=== PATIENT | female | born 1980 | race Caucasian/White ===

== ENCOUNTER 2016-09-09 16:27 | Emergency (ER) | payer MEDICAID, OTHER ==
[~2016-09-09] VITALS: Ht 170.2 cm; Wt 108.9 kg
[2016-09-09] MEDS ORDERED: HYDROcodone-ACET 10/325MG TAB PO ONE (18:00)
[2016-09-09 18:02] VITALS: BP 170/90
== END 2016-09-09 18:21 | disposition home or self-care (01) ==
LOC: ER 16:40
DX: G89.29 Other chronic pain (principal); M54.5 Low back pain; E11.9 Type 2 diabetes mellitus without complications; Z88.0 Allergy status to penicillin
CPT/HCPCS: 82962